=== PATIENT | male | born 1980 | race Caucasian/White ===

== ENCOUNTER 2019-07-09 03:00 | Emergency (ER) | payer OTHER ==
[~2019-07-09] VITALS: Ht 170.2 cm; Wt 81.8 kg
[2019-07-09] MEDS ORDERED: DULO60CA44 PO (03:13)
[2019-07-09] MEDS ORDERED: BACL10TA PO (03:13)
[2019-07-09] MEDS ORDERED: TRAZ-220 PO (03:13)
[2019-07-09] MEDS ORDERED: LEVE500T53 PO (03:13)
[2019-07-09 03:39] LABS: ANION GAP 10 mmol/L (8-16); CALCIUM, TOTAL 8.6 mg/dL (8.8-10.5); CARBON DIOXIDE 24 mmol/L (22-29); CHLORIDE 106 mmol/L (98-107); CREATININE 1.09 mg/dL (0.60-1.30); GLOMERULAR FILTR. RATE CALC > 60 mL/min (>60); GLUCOSE,RANDOM 90 mg/dL (70-110); POTASSIUM 4.5 mmol/L (3.5-5.1); SODIUM SERUM 140 mmol/L (136-145); UREA NITROGEN, BLOOD 13 mg/dL (7-18)
[2019-07-09 03:45] LABS: ALANINE AMINOTRANSFERASE 30 U/L (12-78); ALBUMIN 3.6 g/dL (3.4-5.0); ALKALINE PHOSPHATASE 59 U/L (46-116); ASPARTATE AMINOTRANSFERASE 20 U/L (15-37); BILIRUBIN,TOTAL 0.2 mg/dL (0.1-1.0); TOTAL PROTEIN, SERUM 7.3 g/dL (6.4-8.2)
[2019-07-09 03:48] LABS: BASOPHILS % (AUTO) 0.7 % (0.0-2.0); HEMATOCRIT 40.1 % (41-53); HEMOGLOBIN 13.2 g/dL (13.5-17.5); LYMPHOCYTES # (AUTO) 1.2 K/uL (1.0-4.8); LYMPHOCYTES % (AUTO) 22.8 % (22.0-44.0); MEAN CORPUSCULAR HEMOGLOBIN 28.1 pg (26.0-34.0); MEAN CORPUSCULAR HGB CONC 32.9 G/dL (31.0-37.0); MEAN CORPUSCULAR VOLUME 85 fL (80-100); MONOCYTES # (AUTO) 0.5 K/uL (0.1-1.0); MONOCYTES % (AUTO) 9.1 % (2.0-9.0); NEUTROPHILS # (AUTO) 3.3 K/uL (1.8-7.7); NEUTROPHILS % (AUTO) 60.4 % (40.0-70.0); PLATELET COUNT (AUTO) 216 K/uL (150-450); RED BLOOD CELL COUNT(AUTO) 4.71 MIL/uL (4.50-5.90)
[2019-07-09 06:40] VITALS: BP 130/70
== END 2019-07-09 07:20 | disposition home or self-care (01) ==
LOC: EMS 03:00
DX: F29 Unspecified psychosis not due to a substance or known physiological condition (principal); R03.0 Elevated blood-pressure reading, without diagnosis of hypertension; T43.215A Adverse effect of selective serotonin and norepinephrine reuptake inhibitors, initial encounter; F41.9 Anxiety disorder, unspecified; Y92.89 Other specified places as the place of occurrence of the external cause
CPT/HCPCS: 36415; 80053; 85025; 99284; G0480

== ENCOUNTER 2020-06-25 17:59 | Inpatient (IN) | payer OTHER ==
[~2020-06-25] VITALS: Ht 182.9 cm; Wt 82.3 kg
[~2020-06-25 17:59] MED LIST: BACL10TA PO; DULO-8 PO; LEVE500T53 PO; TRAZ-257 PO
[2020-06-25] MEDS ORDERED: LORazepam 2 MG/ML VIAL IM ONE (18:30)
[2020-06-25] MEDS ORDERED: HALOPERIDOL LACTATE 5 MG/ML VIAL IM ONE (18:30)
[2020-06-25] MEDS ORDERED: DiphenhydrAMINE HCL 50 MG/ML VIAL IM ONE (18:30)
[2020-06-25] MEDS ORDERED: ACETAMINOPHEN 325 MG TABLET PO PRN (18:30)
[2020-06-25 19:05] LABS: BASOPHILS % (AUTO) 0.4 % (0.0-2.0); EOSINOPHILS % (AUTO) 2.3 % (1.0-6.0); HEMATOCRIT 41.2 % (41-53); HEMOGLOBIN 13.6 g/dL (13.5-17.5); LYMPHOCYTES # (AUTO) 1.5 K/uL (1.0-4.8); LYMPHOCYTES % (AUTO) 15.8 % (22.0-44.0); MEAN CORPUSCULAR HEMOGLOBIN 26.9 pg (26.0-34.0); MEAN CORPUSCULAR VOLUME 82 fL (80-100); MONOCYTES # (AUTO) 0.7 K/uL (0.1-1.0); NEUTROPHILS # (AUTO) 7.1 K/uL (1.8-7.7); NEUTROPHILS % (AUTO) 74.5 % (40.0-70.0); PLATELET COUNT (AUTO) 246 K/uL (150-450); RED BLOOD CELL COUNT(AUTO) 5.05 MIL/uL (4.50-5.90); RED CELL DISTRIBUTION WIDTH 18.5 % (11.5-14.5)
[2020-06-25 19:14] LABS: ANION GAP 6 mmol/L (8-16); CALCIUM, TOTAL 8.5 mg/dL (8.8-10.5); CARBON DIOXIDE 26 mmol/L (22-29); CHLORIDE 111 mmol/L (98-107); CREATININE 0.95 mg/dL (0.60-1.30); GLOMERULAR FILTR. RATE CALC > 60 mL/min (>60); GLUCOSE,RANDOM 97 mg/dL (70-110); SODIUM SERUM 143 mmol/L (136-145); UREA NITROGEN, BLOOD 11 mg/dL (7-18)
[2020-06-25 19:21] LABS: ALANINE AMINOTRANSFERASE 41 U/L (12-78); ALKALINE PHOSPHATASE 75 U/L (46-116); ASPARTATE AMINOTRANSFERASE 44 U/L (15-37); BILIRUBIN,TOTAL 0.2 mg/dL (0.1-1.0); TOTAL PROTEIN, SERUM 7.6 g/dL (6.4-8.2)
[2020-06-25 20:01] LABS: COVID AG,FIA SOURCE NASOPHARYNGEAL
[2020-06-25] MEDS: LevETIRAcetam 500 MG TABLET PO SCH (21:00)
[2020-06-25] MEDS ORDERED: GABAPENTIN 400 MG CAPSULE PO ONE (21:00)
[2020-06-25] MEDS ORDERED: LevETIRAcetam 500 MG TABLET PO ONE (21:00)
[2020-06-25 21:30] VITALS: BP 114/65
[2020-06-25] MEDS: BACLOFEN 10 MG TABLET PO SCH (23:04)
[2020-06-26 05:34] VITALS: BP 106/77
[2020-06-26 07:53] VITALS: BP 121/65
[2020-06-26] MEDS: LevETIRAcetam 500 MG TABLET PO SCH ×3 (08:40→20:34)
[2020-06-26] MEDS: BACLOFEN 10 MG TABLET PO SCH ×3 (08:40→20:36)
[2020-06-26] MEDS ORDERED: GABA-1201 PO (10:02)
[2020-06-26] MEDS: TraMADol HCL 50 MG TABLET PO PRN ×2 (15:00→21:01)
[2020-06-26] MEDS: GABAPENTIN 400 MG CAPSULE PO SCH ×2 (16:20→20:35)
[2020-06-26 19:25] VITALS: BP 138/74
[2020-06-26 20:34] LABS: APPEARANCE,URINE CLEAR (CLEAR); BILIRUBIN,URINE NEGATIVE (NEGATIVE); GLUCOSE, URINE (UA) NEGATIVE (NEGATIVE); KETONES,URINE NEGATIVE (NEGATIVE); LEUKOCYTE ESTERASE ,URINE NEGATIVE (NEGATIVE); NITRATE,URINE NEGATIVE (NEGATIVE); OCCULT BLOOD,URINE NEGATIVE (NEGATIVE); PROTEIN,URINE NEGATIVE (NEGATIVE); UROBILINOGEN,URINE 0.2 mg/dL (<=1.0)
[2020-06-26] MEDS: DIVALPROEX SODIUM 500 MG DR TABLET PO SCH (20:35)
[2020-06-26 20:39] LABS: AMPHET/METH SCREEN,URINE NEGATIVE (NEGATIVE); BARBITURATE SCREEN, URINE NEGATIVE (NEGATIVE); BENZODIAZEPINES SCREEN,URINE POSITIVE (NEGATIVE); CANNABINOID SCREEN,URINE NEGATIVE (NEGATIVE); COCAINE SCREEN,URINE NEGATIVE (NEGATIVE); METHADONE SCREEN, URINE NEGATIVE (NEGATIVE); OPIATE SCREEN,URINE NEGATIVE (NEGATIVE)
[2020-06-26 20:46] LABS: PHENCYCLIDINE SCREEN,URINE NEGATIVE (NEGATIVE)
[2020-06-26] MEDS ORDERED: IPRATROPIUM BROMIDE 0.5 MG/2.5 ML NEB SOLUTION NEB PRN (23:00)
[2020-06-26] MEDS ORDERED: BISACODYL 10 MG RECTAL RECTAL SUPPOSITORY PR PRN (23:00)
[2020-06-26] MEDS ORDERED: MAGNESIUM HYDROXIDE SUSPENSION 30 ML UDCUP PO PRN (23:00)
[2020-06-26] MEDS ORDERED: ACETAMINOPHEN 325 MG TABLET PO PRN (23:00)
[2020-06-26] MEDS ORDERED: ONDANSETRON HCL 4 MG/2 ML VIAL IVP PRN (23:00)
[2020-06-26] MEDS ORDERED: ALBUTEROL SULFATE 2.5 MG/0.5 ML NEB SOLUTION NEB PRN (23:00)
[2020-06-27] MEDS: TraMADol HCL 50 MG TABLET PO PRN ×4 (03:10→18:53)
[2020-06-27 04:12] VITALS: BP 125/73
[2020-06-27 07:31] VITALS: BP 158/83
[2020-06-27] MEDS: HEPARIN SODIUM,PORCINE 5,000 UNITS/ML VIAL SQ SCH ×2 (08:13→15:21)
[2020-06-27] MEDS: GABAPENTIN 400 MG CAPSULE PO SCH ×3 (08:14→20:03)
[2020-06-27] MEDS: DOCUSATE SODIUM 100 MG CAPSULE PO SCH ×2 (08:14→20:02)
[2020-06-27] MEDS: LevETIRAcetam 500 MG TABLET PO SCH ×3 (08:14→20:02)
[2020-06-27] MEDS: BACLOFEN 10 MG TABLET PO SCH ×3 (08:14→20:01)
[2020-06-27] MEDS: DIVALPROEX SODIUM 500 MG DR TABLET PO SCH ×2 (08:15→20:02)
[2020-06-27] MEDS: DULoxetine HCL 60 MG CAPSULE PO SCH ×3 (08:40→09:00)
[2020-06-27] MEDS ORDERED: GABAPENTIN 400 MG CAPSULE PO SCH (09:00)
[2020-06-27] MEDS ORDERED: HydrOXYzine PAMOATE 50 MG CAPSULE PO PRN (13:15)
[2020-06-27] MEDS: TraZODone HCL 100 MG TABLET PO SCH (20:01)
[2020-06-27 20:05] VITALS: BP 129/82
[2020-06-27] MEDS: HydrOXYzine PAMOATE 25 MG CAPSULE PO PRN (20:13)
[2020-06-28] MEDS: HEPARIN SODIUM,PORCINE 5,000 UNITS/ML VIAL SQ SCH ×3 (00:17→16:00)
[2020-06-28] MEDS: ZOLPIDEM TARTRATE 5 MG TABLET PO PRN ×2 (00:57→20:33)
[2020-06-28] MEDS: TraMADol HCL 50 MG TABLET PO PRN ×4 (00:58→21:04)
[2020-06-28 04:50] VITALS: BP 113/74
[2020-06-28 07:48] VITALS: BP 108/62
[2020-06-28] MEDS: BACLOFEN 10 MG TABLET PO SCH ×3 (08:32→20:33)
[2020-06-28] MEDS: DIVALPROEX SODIUM 500 MG DR TABLET PO SCH ×2 (08:32→20:33)
[2020-06-28] MEDS: DOCUSATE SODIUM 100 MG CAPSULE PO SCH ×2 (08:32→20:32)
[2020-06-28] MEDS: LevETIRAcetam 500 MG TABLET PO SCH ×3 (08:33→20:33)
[2020-06-28] MEDS: GABAPENTIN 400 MG CAPSULE PO SCH ×3 (09:47→20:33)
[2020-06-28] MEDS ORDERED: DIVA-112 PO (14:18)
[2020-06-28 15:14] VITALS: BP 118/68
[2020-06-28] MEDS: HydrOXYzine PAMOATE 25 MG CAPSULE PO PRN (16:40)
[2020-06-28 19:00] VITALS: BP 135/95
[2020-06-28] MEDS: TraZODone HCL 100 MG TABLET PO SCH (20:33)
[2020-06-29] MEDS: HEPARIN SODIUM,PORCINE 5,000 UNITS/ML VIAL SQ SCH
== END 2020-06-29 01:33 | DRG 101 ==
LOC: EMS 18:02 → 6N 18:54
PROVIDERS: ADMIT Hospitalist; ATTEND Hospitalist
DX: G40.802 Other epilepsy, not intractable, without status epilepticus (principal); R45.851 Suicidal ideations; F31.9 Bipolar disorder, unspecified; F41.9 Anxiety disorder, unspecified; Z20.828 Contact with and (suspected) exposure to other viral communicable diseases
CPT/HCPCS: 80307; 87426; G0480; J1200; J1630; J1644; J2060